=== PATIENT | female | born 1960 | race Caucasian/White ===

== ENCOUNTER → 2018-05-24 | Outpatient (CLI) | payer OTHER ==
--- NOTE | 2018-05-24 16:31 | PCVCIMAG ---
APPROVED REPORT Study performed: 05/24/2018 13:54:53 EXAM: Comprehensive 2D, Doppler, and color-flow Echocardiogram Patient Location: Echo lab Status: routine BSA: 1.57 HR: 70 bpmBP: 118/72 mmHg Rhythm: NSR Other Information Study Quality: Adequate Indications Pre-Op aortic insufficiency 2D Dimensions IVSd: 9.47 (7-11mm) LVDd: 46.95 mm PWd: 9.51 (7-11mm)Ascending Ao: 35.01 (22-36mm) LVDs: 35.24 (25-40mm) Left Atrium: 31.28 (27-40mm) Aortic Root: 30.69 mm LV Single Plane 4CH: 51.95 % LV Single Plane 2CH: 55.17 % Biplane EF: 53.3 % Volumes Left Atrial Volume (Systole) Single Plane 4CH: 50.17 mLSingle Plane 2CH: 55.06 mL LA ESV Index: 34.00 mL/m2 Aortic Valve AoV Peak Oscar.: 1.35 m/s AO Peak Gr.: 7.34 mmHgLVOT Max P.73 mmHg LVOT Max V: 0.97 m/s AI Vmax: 4.52 m/s AI Starr: 3.36 m/s2 AI PHT: 390.15 ms Mitral Valve E/A Ratio: 0.7 MV Decel. Time: 257.45 ms MV E Max Oscar.: 0.35 m/s MV A Oscar.: 0.48 m/s IVRT: 134.95 ms Pulmonary Valve PV Peak Oscar.: 0.80 m/sPV Peak Gr.: 2.56 mmHg Pulmonary Vein P Vein S: 0.29 m/sP Vein A: 0.40 m/s P Vein D: 0.56 m/sP Vein A Dur.: 138.4 msec P Vein S/D Ratio: 0.52 Tricuspid Valve TR Peak Oscar.: 2.11 m/s TR Peak Gr.: 17.76 mmHg Left Ventricle The left ventricle is normal size. There is normal LV segmental wall motion. There is normal left ventricular wall thickness. Left ventricular systolic function is normal. The left ventricular ejection fraction is within the normal range. LVEF is 55%. Grade I - abnormal relaxation pattern. Right Ventricle The right ventricle is normal size. The right ventricular systolic function is normal. Atria The left atrium size is normal. The right atrium size is normal. Aortic Valve The aortic valve is normal in structure. Mild to moderate aortic regurgitation. There is no aortic valvular stenosis. Mitral Valve The mitral valve is normal in structure. There is no mitral valve regurgitation noted. No evidence of mitral valve stenosis. Tricuspid Valve The tricuspid valve is normal in structure. Mild tricuspid regurgitation with PAP of 25 mmHg. Pulmonic Valve The pulmonary valve is normal in structure. Mild pulmonic regurgitation. Great Vessels The aortic root is normal in size. Sinus of Valsalva is mildly dilated to 3.9 cm and unchanged from previous. IVC is normal in size and collapses >50% with inspiration. Pericardium There is no pericardial effusion. There is no pleural effusion. <Conclusion> The left ventricle is normal size. LVEF is 55%. Grade I - abnormal relaxation pattern. The right ventricle is normal size. The left atrium size is normal. Mild to moderate aortic regurgitation. Mild to moderate aortic regurgitation. Mild tricuspid regurgitation with PAP of 25 mmHg. The aortic root is normal in size. Sinus of Valsalva is mildly dilated to 3.9 cm and unchanged from previous. There is no pericardial effusion.
== END | disposition home or self-care (01) ==
LOC: PCVCIMAG 14:09
PROVIDERS: ATTEND Internal Medicine Cardiovascular Disease
DX: Z01.818 Encounter for other preprocedural examination (principal); I08.2 Rheumatic disorders of both aortic and tricuspid valves; I77.810 Thoracic aortic ectasia; E78.00 Pure hypercholesterolemia, unspecified; E78.1 Pure hyperglyceridemia; I49.3 Ventricular premature depolarization
CPT/HCPCS: 93306